=== PATIENT | female | born 1935 | race Caucasian/White ===

== ENCOUNTER → 2018-06-06 07:50 | Outpatient (CLI) | payer MEDICARE, OTHER, SELFPAY | PROVIDERS: Family Provider Podiatrist; PCP Internal Medicine; Visit Provider Internal Medicine | DX: M81.0 Age-related osteoporosis without current pathological fracture (principal); I10 Essential (primary) hypertension; Z53.9 Procedure and treatment not carried out, unspecified reason ==

== ENCOUNTER → 2018-06-12 13:18 | Oncology outpatient (ONC) | payer MEDICARE, OTHER, SELFPAY ==
[2018-06-12 14:22] LABS: BUN Creatinine Ratio 28.3 (6-22); Blood Urea Nitrogen 17 mg/dL (7-17); Calcium 9.4 mg/dL (8.4-10.2); Carbon Dioxide 27 mmol/L (22-32); Chloride 106 mmol/L (98-107); Estimated Glomerular Filt Rate > 60.0 mL/min (>60); Glucose 89 mg/dL (80-110); HEMOLYSIS < 15 (0-50); Potassium 3.9 mmol/L (3.4-5.1); Sodium 140 mmol/L (137-145)
[2018-06-12 14:47] VITALS: BP 140/56; PULSE 66; RESP 18; TEMP 36.9; O2SAT 96
[2018-06-12] MEDS: ZOLEDRONIC ACID 5 MG in SODIUM CHLORIDE 0.9% 100 ML 318.75 ML IV (14:49)
--- NOTE | 2018-06-12 15:36 | PC.NURSE ---
Pt seen in clinic for reclast. Denies chest pain and SOB. No nausea or vomiting reported. Gait steady. Speech clear. Answers questions appropriately. No s/s of distress noted, states I'm doing good.
== END ==
LOC: ONC 13:21
PROVIDERS: Family Provider Podiatrist; PCP Internal Medicine; Visit Provider Internal Medicine
DX: M81.0 Age-related osteoporosis without current pathological fracture (principal); I10 Essential (primary) hypertension
CPT/HCPCS: 80048; 96374; J3489

== ENCOUNTER → 2018-09-10 14:00 | Outpatient (REF) | payer MEDICARE, OTHER, SELFPAY | LOC: LAB 14:00 | PROVIDERS: Family Provider Podiatrist; PCP Internal Medicine; Visit Provider Dermatology MOHS-Micrographic Surgery | DX: Z48.817 Encounter for surgical aftercare following surgery on the skin and subcutaneous tissue (principal) | CPT/HCPCS: 87070; 87075; 87077; 87147; 87186; 87205 ==

== ENCOUNTER → 2019-06-17 14:00 | Oncology outpatient (ONC) | payer MEDICARE, OTHER, SELFPAY ==
[2019-06-17] MEDS: ZOLEDRONIC ACID 5 MG in SODIUM CHLORIDE 0.9% 100 ML 318.75 ML IV (14:13)
[2019-06-17 14:16] VITALS: BP 114/62; PULSE 69; RESP 16; TEMP 36.8; O2SAT 95
== END ==
PROVIDERS: Family Provider Podiatrist; PCP Internal Medicine; Visit Provider Internal Medicine
DX: M81.0 Age-related osteoporosis without current pathological fracture (principal)
CPT/HCPCS: 96365; J3489

== ENCOUNTER 2019-09-24 13:49 | Observation (INO) | payer MEDICARE, OTHER, SELFPAY ==
[2019-09-20 12:20] VITALS: BMI 24.8
[2019-09-23] VITALS (16 sets, daily range): BP systolic 99–150; BP diastolic 59–79; PULSE 58–73; RESP 9–18; TEMP 36.3–37.3; O2SAT 95–100; BMI 24.3
--- NOTE | 2019-09-23 | PATH_ITS ---
[facility] Accession Number: [id number] . 01 Material submitted: . PART A: gallbladder - GALLBLADDER PART B: uterus - UTERUS, BILATERAL OVARIES AND FALLOPIAN TUBES, CERVIX . 02 Diagnosis: A. Gallbladder, Cholecystectomy: Gallbladder with cholelithiasis and cholesterolosis. Benign lymphoid tissue present at the cystic duct remnant. Attached sub-capsular hepatic parenchyma with no significant histomorphologic abnormality. . B. Uterus, Bilateral Ovaries and Fallopian Tubes, Cervix, Hysterectomy and Bilateral Salpingo-oophorectomy (Weight 43 grams): Cervix with focal reactive changes and parakeratosis, consistent with clinical impression of prolapse. Endocervix with prominent Nabothian gland cysts; negative for glandular dysplasia or malignancy. Endometrium with cystic atrophy; negative for glandular hyperplasia, cytologic atypia or malignancy. 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 Uterine serosa with no significant histomorphologic abnormality. Right and left ovaries with no significant histomorphologic abnormality. Right fallopian tube with benign paratubal cysts and otherwise no significant histomorphologic abnormality. Left fallopian tube with no significant histomorphologic abnormality. MRV 09/25/2019 1651 Local . 02 Electronically signed: . Myra Alas MD, Pathologist NPI- [id number] . 01 Gross description: . (A) Received in formalin, labeled gallbladder, is an intact gallbladder (length-11.5 cm, diameter-4.3 cm) with green smooth shiny serosa and a patent cystic duct. A piece of hepatic tissue (2.3 x 1.7 x 0.5 cm) with an unremarkable cut surface is attached to the fundus. A possible lymph node (0.3 x 0.2 by less than 0.1 cm) is identified. The lumen contains dark green viscous bile and one brown hard calculus (1.3 x 0.7 x 0.6 cm). The mucosa is green, smooth and flat. The wall is up to 0.1 cm thick. No nodules, masses or lesions are identified. Section code: (A1) cystic duct resection margin and two serial sections from the body; (A2) two longitudinal sections from the fundus; (A3) hepatic tissue, serially sectioned, entirely submitted; (A4) one intact possible lymph node. (B) Received in formalin, labeled uterus, ovaries and fallopian tube bilateral, cervix, is a uterus (43 grams, 2.4 cm AP, 7.2 cm SI, 3.7 cm ML) with attached ovaries (right-2.5 x 0.8 x 0.6 cm; left-1.7 x 1.0 x 0.5 cm) and fimbriated fallopian tubes (right: length-5.1 cm, diameter-0.2 cm; left: length-5.2 cm, diameter-0.2 cm). The cervix (1.5 cm AP, 2.7 cm ML) has a transverse os and patent endocervical canal lined with multiple cystic cavities (0.1 cm-0.5 cm) containing clear colorless fluid and turbid gelatinous material. The endometrium (average thickness -0.1 cm) is umaña-pink smooth and flat. The myometrium (thickness-1.2 cm) is umaña and unremarkable. The ovaries have umaña-yellow shiny bosselated serosa and umaña-white parenchyma with corpus albicans identified. The fallopian tubes have umaña-smooth shiny serosa and umaña unremarkable lumens. Section code: (B1) anterior cervix; (B2) posterior cervix; (B3, B4) anterior endomyometrium; (B5, B6) posterior endomyometrium; (B7) right ovary, sales representative [employer] serial sections; (B8) left ovary, sales representative [employer] serial sections; (B9) right fallopian tube, sales representative [employer] serial sections; (B10) right fimbria, bivalved, entirely submitted; (B11) left fallopian tube, sales representative [employer] serial sections; (B12) left fimbria, bivalved, entirely submitted. ([id number]) /MRV 09/25/2019 0506 Local . 02 Pathologist provided ICD-10: K80.70, N81.4 . 02 CPT . 592023, 702525 Performed at: 01 [facility] [address] [id number] MD Eren Frost MD Phone: [phone] Performed at: 02 [facility] [id number] [place], [place] [id number] MD Marjan Winn MD Phone: [phone]
--- NOTE | 2019-09-23 07:34 | PM.PREOP ---
Pre-operative Note Interval Note History & Physical reviewed/Exam performed by Physician: Yes Changes to H&P: No
--- NOTE | 2019-09-23 07:36 | PM.PREOP ---
Pre-operative Note Interval Note History & Physical reviewed/Exam performed by Physician: Yes Changes to H&P: No
[2019-09-23 07:46] LABS: Add Manual Diff / Slide Review NO; Basophils Absolute Auto 0 /uL (0-100); Basophils Percent Auto 1.1 % (0-2); Eosinophils Absolute Auto 100 /uL (0-450); Hematocrit 39.4 % (36-46); Hemoglobin 13.5 g/dL (12.0-16.0); Lymphocytes Absolute Auto 1700 /uL (1100-4500); Lymphocytes Percent Auto 41.4 % (25-40); Mean Corpuscular HGB Conc 34.1 % (30-36); Mean Corpuscular Hemoglobin 31.1 PG (26-34); Mean Corpuscular Volume 91.3 fL (80-100); Monocytes Absolute Auto 300 /uL (0-900); Monocytes Percent Auto 7.3 % (3-14); Neutrophils Absolute Auto 1900 /uL (1500-7000); Neutrophils Percent Auto 47.2 % (50-75); Platelet Count 236 X10^3/uL (150-400); Red Blood Cell Count 4.32 X10^6/uL (4.0-5.2); Red Cell Distribution Width 13.2 % (11.6-14.8)
[2019-09-23] MEDS: LACTATED RINGERS 1,000 ML 42 ML IV ×2 (07:48→08:35)
[2019-09-23 07:55] LABS: Blood Urea Nitrogen 15 mg/dL (7-17); Calcium 9.7 mg/dL (8.4-10.2); Carbon Dioxide 27 mmol/L (22-32); Chloride 106 mmol/L (98-107); Estimated Glomerular Filt Rate > 60.0 mL/min (>60); Glucose 97 mg/dL (80-110); Sodium 139 mmol/L (137-145)
[2019-09-23 07:57] LABS: HEMOLYSIS 64 (0-50); Potassium 4.1 mmol/L (3.4-5.1)
[2019-09-23] MEDS: BUPIVACAINE 0.5% W/ EPI (PF) VIAL 30 ML INJ (08:37)
--- NOTE | 2019-09-23 08:39 | SUR.OPER ---
Lithotomy on padded OR bed. [place] Pad Positioner under torso. Head on pillow, arms padded and tucked at sides. Legs secured in padded yellow fins stirrups.
--- NOTE | 2019-09-23 09:05 | P.OP_ITS ---
Operative Date/Time/Diagnoses Date of procedure: 09/23/19 Time of procedure: 09:05 Pre-op diagnosis: BILIARY COLIC Post-op diagnosis: same Procedure & Clinicians Procedure: LAPAROSCOPIC CHOLECYSTECTOMY Same procedure as scheduled: Yes Indications: 84-year-old female with biliary colic presents for elective cholecystectomy to be performed jointly with a laparoscopic hysterectomy. Surgeon: Lang Guzman Chart Computer: Vani Cool Click Yes if Unassisted: No Anesthesia Type: General Operative Notes Findings: Gallstone Specimen(s): other (Gallbladder) Estimated Blood Loss (mL): 10 Procedure in detail: The patient was brought to the operating room placed supine on the table. Bilateral lower extremity compression devices were applied. General anesthesia was induced and they were intubated with an endotracheal tube. They received 2g of ancef prior to skin incision. A time-out was performed to ensure the correct patient procedure necessary equipment within the operating room. They were then prepped and draped in the usual sterile fashion. Infraumbilical incision was made the umbilical stalk was grasped and elevated and the fascia was sharply incised. The abdomen was entered atraumatically. A 10 mm trocar was then placed into the abdomen. Pneumoperitoneum was established. The laparoscopic camera was inserted into the abdomen inspection was made that demonstrated no evidence of injury upon entry. We then placed our working ports the 1st 5 mm port high in the epigastrium and then 2 in the right upper quadrant. The gallbladder was grasped and retracted over the liver and grasped laterally by the fundus. The triangle of Calot was exposed. The tr iangle of calot was then skeletonized using hook electrocautery and demonstrated the cystic duct clearly entering the gallbladder the cystic artery and the liver and in the background. With the critical view of safety established the cystic duct was clipped twice proximally and once distally and then sharply divided and the cystic artery was taken in the same fashion. Next the gallbladder was re moved from the liver bed using electro cautery. The liver bed was then inspected for hemostasis and this was achieved. The abdomen was irrigated with sterile saline and inspection was made that showed the clips in good position. The specimen was removed using Endo-Catch. Please see Dr. Cool's dictation for the details of the remainer of the case Complications: none Post-operative Condition: stable Disposition: Acute Care
[2019-09-23] MEDS: ACETAMINOPHEN IV 1,000 MG/100 ML VIAL 400 MG IV (09:15)
[2019-09-23] MEDS: BUPIVACAINE 0.25% W/ EPI 30 ML VIAL INJ (09:47)
--- NOTE | 2019-09-23 11:47 | SUR.PHASEI ---
Report called to floor, Patient comfortable, Denies pain/nausea, warm blankets given for mild shivers. Transported to floor by Rn and nursing aide. Clothing bag and glasses to room.
[2019-09-23] MEDS: LACTATED RINGERS 1,000 ML 100 ML IV (12:15)
[2019-09-23] MEDS: OXYCODONE/ACETAMINOPHEN 5/325 TABLET 1 TAB PO (14:38)
--- NOTE | 2019-09-23 14:43 | PC.NURSE ---
Postop: Arrived to room 227 approx 1200. Alert and oriented X3. Band-aid dressings on Abd C/D/I. No bleeding on gustavo-pad. Coe to gravity, urine clear yellow. Room air, cont pulse ox in place. Denies N/V, tolerating PO's ok. Just C/O increasing abd discomfort, and was medicated with 1 tab Percocet for the same. SCD's to BLE's. Ice pack to abd. IVF per orders, site in L forearm WNL. Oriented to room and call light and encouraged to make needs known. Light and belongings within reach, bed alarm on. Family at bedside and attentive.
[2019-09-23] MEDS: ACETAMINOPHEN 325 MG TABLET 650 MG PO (19:29)
[2019-09-23] MEDS: OXYCODONE IR 5 MG TABLET PO ×2 (19:29→22:52)
--- NOTE | 2019-09-23 20:56 | P.OP_ITS ---
Operative Date/Time/Diagnoses Date of procedure: 09/23/19 Time of procedure: 11:00 Pre-op diagnosis: Uterine prolapse 3rd degree Cystocele third-degree Rectocele third-degree Post-op diagnosis: same Procedure & Clinicians Procedure: Procedures Operation Date: 09/23/19 07:45 Actual Procedures Side Surgeon p Laparoscopic Assisted Vag Hysterectomy w/ bilateral salpingo-oophorectomy Vani Cool MD s Colporrhaphy Anterior/Posterior Colporrhaphy Vani Cool MD s Laparoscopic Cholecystectomy Lang Guzman MD Indications: Uterine prolapse Symptomatic cystocele and rectocele Incomplete emptying of the bladder Surgeon: Vani Cool Footwear Factory Worker: Cy Killian Anesthesia Type: General Operative Notes Findings: Five week size prolapsed uterus Third-degree cystocele Third-degree rectocele Normal ovaries and tubes Normal appendix, and liver Closure Type: primary Specimen(s): left tube & ovary, right tube & ovary and uterus Applied: catheter Estimated blood loss (mL): 100 Blood products transfused: none Procedure in detail: The patient was taken to the operating room where she was placed in the dorsal supine position. After adequate general endotracheal anesthesia was achieved, she was placed in the dorsal lithotomy position, and prepped and draped in the usual sterile fashion. A bivalve speculum was placed into the vagina, and a single-tooth tenaculum was placed on the anterior lip of the cervix. The cervical os was sequentially dilated until the ZUMI uterine manipulator could pass easily into the endometrial cavity. The single-tooth tenaculum was removed from the anterior lip of the cervix, and the bivalve speculum was removed from the vagina. The laparoscopy was then initiated by Dr. Guzman who was performing the laparoscopic cholecystectomy. This is dictated as a separate note by Dr. Guzman. At the completion of the laparoscopic cholecystectomy, a 5th incision was made after 6 cc of 0.5% Marcaine with epinephrine were injected. This was midway between the pubic symphysis and umbilicus on the left side. A 5 mm incision was made. A 5 mm trocar was placed under direct visualization. Initial inspection of the pelvis revealed the findings noted above. The right tube and ovary were grasped with an atraumatic grasper. The infundibulopelvic ligament on the right side was cauterized and cut with plasma kinetic. The round ligament and broad ligament were cauterized and cut. This was continued to the level of the uterine arteries. This was repeated on the patient's left side. The instruments were removed from the abdomen. Attention was then turned to the vagina where the ZUMI uterine manipulator was removed from the uterus. The cervix was grasped with a 4 tooth tenaculum. 10 mL of quarter percent Marcaine with epinephrine w ere injected circumferentially around the cervix. The cervix was circumscribed. The bladder and rectum were dissected off the lower uterine segment and cervix with an open moistened Ray-Monica. The peritoneum was entered sharply with the Metzenbaum scissors anteriorly and a [place] placed. The peritoneum was entered posteriorly with the Metzenbaum scissors and the long weighted speculum was placed into the posterior cul-de-sac. The uterosacral cardinal ligament complexes were clamped, transected, and suture ligated with 0 Vicryl. These were attached to hemostat. The uterine arteries were clamped, transected, and suture ligated with 0 Vicryl. The uterus was handed off for specimen with the tubes and ovaries. The peritoneum was closed with a pursestring suture with 2-0 Vicryl. The vaginal cuff was closed with 0 Vicryl with a series of simple interrupted sutures. The tagged sutures were cut. 2 Allis clamps were placed at the apex of the cystocele. 6 mL of half percent Marcaine with epinephrine were injected and an incision was made with a #10 blade between the 2 Allis clamps. Wide Allis clamps were placed on the midline of the cystocele approximately 6. The mucosa was undermined using the Metzenbaum scissors and the mucosa incised in the midline moving the wide Allis clamps to the edges of the mucosa. The mucosa was dissected off the underlying fascia using an open moistened Ray-Monica and a #10 blade. The fascia was reapproximated with 0 Vicryl with a series of horizontal mattress sutures. The excess vaginal mucosa was excised. The mucosa was closed using simple interrupted sutures with 2-0 Vicryl including the underlying fascia to close the space. The weighted speculum was removed from the vagina. Allis clamps were placed at the mucocutaneous junction at the introitus. 6 mL of half percent Marcaine with epinephrine were injected. An incision was made with a #10 blade between the 2 Allis clamps, and a triangular piece of skin and underlying subcutaneous tissue was removed. Allis clamps were placed in the midline of the rectocele. 10 mL of half percent Marcaine with epinephrine were injected submucosally. The mucosa was undermined using the Metzenbaum scissors and the mucosa incised in the midline, moving the wide Allis clamps to the mucosal edges. The underlying fascia was dissected off of th mucosa using an open moistened Ray-Monica and a #10 blade. The fascia was reapproximated using 0 Vicryl with a series of horizontal mattress sutures. The excess vaginal mucosa was excised. The mucosa was closed using a series of simple interrupted sutures with 2-0 Vicryl including the underlying fascia to close the space. On the perineum 0 Vicryl was used to reapproximate the levator muscle. The subcutaneous layer was closed with 2-0 Vicryl. The skin was closed with 3-0 chromic in a subcuticular fashion. Hemostasis was achieved. Attention was then turned back to the abdomen where the pelvis was inspected. There was no bleeding noted. The pelvis was copiously irrigated with warm normal saline. The instruments were removed from the abdomen. The CO2 was allowed to escape. The trocars were removed. The umbilical incision was closed on the fascia with 0 Vicryl. The subcutaneous layer was closed with 2 simple interrupted sutures with 3 0 Vicryl. all of the incisions were closed with 4-0 Biosyn in a subcuticular fashion. Steri-Strips, 2 x 2, and op sites were placed. A Betadine moistened vaginal pack was placed into the vagina. A rectal exam was done and there were no sutures palpable in the rectum. The urine was clear. Sponge, lap, and instrument counts were correct x-2. The patient tolerated the procedure well, was taken to PACU in stable condition. Complications: none Post-operative Condition: stable Disposition: PACU Plan for aftercare: To Acute Care after recovery
[2019-09-23] MEDS: DOCUSATE 250 MG CAPSULE PO (21:45)
[2019-09-24] MEDS: OXYCODONE IR 5 MG TABLET PO ×3 (02:02→10:47)
--- NOTE | 2019-09-24 02:40 | PC.NURSE ---
Addendum entered by Toña Wallace R.N. 09/24/19 06:23: Vaginal packing removed and then catheter d'cd. Instructed in sx/prevention of UTI. Periarea cleansed and peripad changed; small amount blood on pad. Addendum entered by Toña Wallace R.N. 09/24/19 05:48: Order to DC catheter at 0600, but patient has vaginal packing in. Dr Cool called and order received to remove packing prior to discontinuing catheter. Patient states she slept well with being able to lie on side. Declines offer of pain medication at this time. Original Note: Patient is alert and oriented. Breath sounds CTA with RA sat of 98%. HRR but bradycardic at 58 bpm. Denies nausea. BT present and states she has passed some flatus. Does have some abdominal cramping and feeling of need to defecate. Moderate amount old blood on chux pad; placed peripad. Indwelling catheter is patent; urine clear, light joselin. Able to move self in bed, but hesitant about turning so assisted to lie on right side with supportive pillows as complains of 3/10 back pain. Medicated with Oxycodone for abdominal cramping and back pain. Lap site dressings x 5 are all CDI; bruising noted below umbilical dressing. Abdomen is tender/soft. Wearing bilateral SCD's. Reports recent fall so fall risk score is high and bed alarm is activated. Assisted to bathroom with walker and 1 assist then back to bed. Chronic tingling present in left foot.
[2019-09-24 05:24] LABS: Add Manual Diff / Slide Review NO; Basophils Absolute Auto 0 /uL (0-100); Basophils Percent Auto 0.2 % (0-2); Eosinophils Absolute Auto 0 /uL (0-450); Eosinophils Percent Auto 0.1 % (2-4); Hematocrit 30.9 % (36-46); Hemoglobin 10.7 g/dL (12.0-16.0); Lymphocytes Absolute Auto 1600 /uL (1100-4500); Lymphocytes Percent Auto 17.1 % (25-40); Mean Corpuscular HGB Conc 34.5 % (30-36); Mean Corpuscular Hemoglobin 31.3 PG (26-34); Mean Corpuscular Volume 90.9 fL (80-100); Monocytes Absolute Auto 800 /uL (0-900); Monocytes Percent Auto 9.2 % (3-14); Neutrophils Absolute Auto 6800 /uL (1500-7000); Neutrophils Percent Auto 73.4 % (50-75); Platelet Count 199 X10^3/uL (150-400); White Blood Cell Count 9.2 X10^3/uL (4.5-11.0)
[2019-09-24 06:08] VITALS: BP 107/45; PULSE 69; RESP 16; TEMP 36.6; O2SAT 97
[2019-09-24 07:55] VITALS: BP 113/55; PULSE 63; RESP 18; TEMP 36.6; O2SAT 98
[2019-09-24] MEDS: ROSUVASTATIN 10 MG TABLET PO (08:12)
[2019-09-24] MEDS: POLYETHYLENE GLYCOL 3350 17 GM POWD.PACK PO (08:12)
[2019-09-24] MEDS: DOCUSATE 250 MG CAPSULE PO ×2 (08:12→21:03)
[2019-09-24] MEDS: MULTIVITAMIN 1 TABLET 1 TAB PO (08:12)
[2019-09-24] MEDS: CALCIUM CARBONATE 600 MG TABLET 1200 MG PO (08:19)
[2019-09-24] MEDS: FISH OIL 1,000 MG CAPSULE 1000 MG PO (08:19)
[2019-09-24] MEDS: VALSARTAN 80 MG TABLET 40 MG PO (08:19)
[2019-09-24 08:32] VITALS: BP 130/63; PULSE 70
--- NOTE | 2019-09-24 09:35 | P.PN_ITS ---
Subjective Subjective Date Patient Seen: 09/24/19 Time Patient Seen: 09:35 Interval history: No acute overnight events. Tolerating diet without nausea vomiting. Exam Vital Signs (past 8 hours): - 09/24/19 06:08 09/24/19 07:55 09/24/19 08:32 Temperature 97.9 F 98 F Pulse Rate 69 63 70 Respiratory Rate 16 18 Blood Pressure 107/45 L 113/55 L 130/63 Pulse Oximetry 97 98 Oxygen Delivery Method Room Air Oxygen Flow Rate 0 Narrative Exam Narrative: General adult female alert oriented no acute distress Abdomen soft appropriately tender to palpation incisions clean dry intact Objective Labs Result Diagrams: 09/24/19 04:45 09/23/19 07:30 Labs: Laboratory Results - last 24 hr 09/24/19 04:45 WBC 9.2 D RBC 3.40 L Hgb 10.7 L Hct 30.9 L MCV 90.9 MCH 31.3 MCHC 34.5 RDW 13.0 Plt Count 199 Neut % (Auto) 73.4 D Lymph % (Auto) 17.1 L D [place] % (Auto) 9.2 Eos % (Auto) 0.1 L Baso % (Auto) 0.2 Neut # (Auto) 6800 Lymph # (Auto) 1600 [place] # (Auto) 800 Eos # (Auto) 0 Baso # (Auto) 0 Assessment & Plan Post-op Postoperative Procedures: Procedures Operation Date: 09/23/19 07:45 Actual Procedures Side Surgeon p Laparoscopic Assisted Vag Hysterectomy w/ bilateral salpingo-oophorectomy Vani Cool MD s Colporrhaphy Anterior/Posterior Colporrhaphy Vani Cool MD s Laparoscopic Cholecystectomy Lang Guzman MD Postoperative status narrative: 84-year-old female postoperative day 1 status post laparoscopic cholecystectomy and hysterectomy doing well. No acute issues related to the cholecystectomy progressing appropriately. -no lifting greater than 20 lb for the next 4 weeks -follow-up with General surgery in 2 weeks time. Quality VTE Deep Vein Thrombosis/Pulmonary Embolism Present on Admission: No
--- NOTE | 2019-09-24 10:48 | PC.NURSE ---
Addendum entered by Shi Dumont R.N. 09/24/19 14:30: Cabrera placed and pt immediately had 1000cc of yellow urine out. Called Dr. Cool and she wants us to keep cabrera catheter in over to night to rest bladder and then in the am we will remove it and see if she can void. Addendum entered by Shi Dumont R.N. 09/24/19 13:34: Pt has voided 2 more times at 1125 she had voided 150cc and pvr was 217. She also voided 275cc and pt had pvr of 324 for first scan and then 127cc for second scan. into see patient for a second time and she would like a cabrera to be inserted for accurate pvr and if she has a lot of urine in bag we will keep it in. Original Note: Pt is A&Ox3. Given percolone x2 this shift. She is moving with a one person assist and using walker. Pt has 5 lap sites to her abdomen that are all dressed and cdi. She does have some bruising to her mid abdomen from surgery. Family is in room. Cabrera catheter taken out at 0600 and pt voided 100cc at 1000am, her post void residual was 134cc. Dr. Cool's Nurse notified. Pt will most likely be disharged to home today.
[2019-09-24 12:00] VITALS: BP 102/51; PULSE 63; RESP 18; TEMP 36.3; O2SAT 96
--- NOTE | 2019-09-24 12:09 | CM.DANOTE ---
DCP/Assessment: Reviewed chart. Patient is a 84yr old female admitted to [facility] for elective 1)Hysterectomy and 2)Laparoscopic Cholecystectomy. PCP is Dr. German. Primary payor is 1)Medicare 2)[facility]. Met with patient explained CM/SW role. Patient resting comfortably in bed at time of assessment. Patient reports that she hopes to d/c home today. Patient resides with her spouse/Sebastian in [facility]. Patient uses walker at baseline and both herself and spouse drive. Patient denies any d/c planning needs. Patient and spouse report that they have very supportive family nearby that can assist as needed. P: Home when medically stable. DEYANIRA Santos Discharge Planning/Care Management Advanced directive, confirm from FAMILY Start: 09/23/19 12:49 Freq: Q24H Status: Active Protocol: Document 09/23/19 12:49 KTE (Rec: 09/23/19 12:50 KTE [id number]) Advance Directive, confirm on record Time 12:50 Person contacted family Copy received No CM Discharge Assessment Start: 09/24/19 12:07 Freq: Status: Active Protocol: Document 09/24/19 12:07 KJS (Rec: 09/24/19 12:09 KJS [id number]) Discharge Planning Assessment Assigned Prototype Engineer Manager DEYANIRA Santos Contact Information Sebastian Clark (spouse) [phone] Advance Directives? Yes Advance Directives on File No History Provided By Patient,Significant Other, Medical Record Prior Living Arrangements House Household Members spouse Type of transporation used prior to Drives own vehicle admit Independent with ADL's Yes: Uses walker at baseline Is patient alert and oriented? Yes Caregiver for Another Yes: elderly spouse DME Already Rented / Owned FWW / Walker Barriers to Discharge No Discharge Plan Home Transportation Arrangement Family to provide transport Whiteboard Updated in Patient Room with Yes name and ext. # of Prototype Engineer Manager Review Status In Process Next Review Type Continued Stay Review Pre-Anesthesia Assessment Start: 09/20/19 12:20 Freq: Status: Complete Protocol: Document 09/20/19 12:20 CAB (Rec: 09/20/19 12:33 CAB [id number]) Pre-Anesthesia Assessment Patient Information Reviewed Via Chart Review Primary Care Provider Nik German Seen Specialist in Last 12 Months Yes Specialist Seen General surgeon,Deep Fryer Assembler Primary Language Albanian Insurance Verification Representative Required No Height 167.64 cm Weight 69.853 kg Body Mass Index (BMI) 24.8 Anesthesia Review Requested No Pantry Steward/Stewardess No Smoking Status Former smoker how long ago did patient quit smoking ~1977 Pain Present Pain Reported Comment RUQ Patient is completely paralyzed or No completely immobile Mental Status Oriented to own ability Currently Taking a Beta [place] No Anti-Coagulant Therapy No Urinary Catheter Present No Hx Urinary Self Catheterization No Diabetes No Patient No Lactating No Presence of External or Internal Medical Yes: Knee prosthesis Devices Advance Directives? Yes
[2019-09-24 15:37] VITALS: BP 109/53; PULSE 68; RESP 18; TEMP 36.7; O2SAT 96
[2019-09-24] MEDS: OXYCODONE IR 10 MG TABLET PO ×2 (17:14→21:02)
[2019-09-24 21:08] VITALS: BP 131/72; PULSE 72; RESP 18; TEMP 36.8; O2SAT 96
--- NOTE | 2019-09-24 21:14 | P.PN_ITS ---
Subjective Subjective Date Patient Seen: 09/24/19 Time Patient Seen: 17:15 Interval history: Patient is an 84-year-old postop day # 1 status post laparoscopic cholecystectomy, LAVH/BSO/anterior and posterior repair She is tolerating a diet. No nausea or vomiting. Pain is well controlled. Her catheter and packing were removed at 6:00 a.m. this morning. She has been able to void but has had increasing postvoid residuals. Exam Vital Signs (past 8 hours): - 09/24/19 15:37 09/24/19 21:08 Temperature 98.1 F 98.2 F Pulse Rate 68 72 Respiratory Rate 18 18 Blood Pressure 109/53 L 131/72 Pulse Oximetry 96 96 Oxygen Delivery Method Room Air Oxygen Flow Rate 0 Narrative Exam Narrative: Generally: Patient is sitting up in bed, eating dinner, no acute distress Lungs: Clear to auscultation bilaterally Cardiovascular: Regular rate and rhythm Abdomen: Distended especially below the umbilicus. Good bowel sounds. Extremities: Negative Homans, no edema Objective Labs Result Diagrams: 09/24/19 04:45 09/23/19 07:30 Labs: Laboratory Results - last 24 hr 09/24/19 04:45 WBC 9.2 D RBC 3.40 L Hgb 10.7 L Hct 30.9 L MCV 90.9 MCH 31.3 MCHC 34.5 RDW 13.0 Plt Count 199 Neut % (Auto) 73.4 D Lymph % (Auto) 17.1 L D [place] % (Auto) 9.2 Eos % (Auto) 0.1 L Baso % (Auto) 0.2 Neut # (Auto) 6800 Lymph # (Auto) 1600 [place] # (Auto) 800 Eos # (Auto) 0 Baso # (Auto) 0 Assessment & Plan Post-op Postoperative Procedures: Procedures Operation Date: 09/23/19 07:45 Actual Procedures Side Surgeon p Laparoscopic Assisted Vag Hysterectomy w/ bilateral salpingo-oophorectomy Uma Cool MD s Colporrhaphy Anterior/Posterior Colporrhaphy Vani Cool MD s Laparoscopic Cholecystectomy Lang Guzman MD Postoperative day: 1 Postoperative status: urinary retention Postoperative status narrative: Postop day # 1 with acute urinary retention Postoperative plan: voiding trials Postoperative plan narrative: In and out catheterization with Coe, if greater than 400 cc will leave the catheter in place overnight Removed catheter in the morning and begin voiding trials Anticipate discharge September 25, 2019 Time Spent With Patient Time with patient: 15-24 minutes Quality VTE Deep Vein Thrombosis/Pulmonary Embolism Present on Admission: No
[2019-09-25 00:03] VITALS: BP 128/66; PULSE 74; RESP 20; TEMP 36.7; O2SAT 97
[2019-09-25] MEDS: OXYCODONE IR 5 MG TABLET PO ×2 (04:27→09:56)
[2019-09-25 04:35] VITALS: BP 114/69; PULSE 76; RESP 16; TEMP 36.9; O2SAT 96
--- NOTE | 2019-09-25 06:32 | PC.NURSE ---
0600 Coe discontinued tolerated procedure well. Noted scant amount of vaginal bleeding, good gustavo & skin care done. Wearing her own underwear & gustavo-pad applied. Denies any pain @ this time & reported slept a little better last night. Will cont. POc & monitor.
--- NOTE | 2019-09-25 08:33 | PC.NURSE ---
Pt voided 225 in the bathroom and bladder scanned (PVR) of 120cc. has discharged pt and she will be going home around 11am.
[2019-09-25 08:55] VITALS: BP 126/68; PULSE 66; RESP 14; TEMP 36.8; O2SAT 97
[2019-09-25] MEDS: MULTIVITAMIN 1 TABLET 1 TAB PO (08:56)
[2019-09-25] MEDS: DOCUSATE 250 MG CAPSULE PO (08:56)
[2019-09-25] MEDS: FISH OIL 1,000 MG CAPSULE 1000 MG PO (08:56)
[2019-09-25] MEDS: CALCIUM CARBONATE 600 MG TABLET 1200 MG PO (08:56)
[2019-09-25] MEDS: VALSARTAN 80 MG TABLET 40 MG PO (08:57)
[2019-09-25] MEDS: ENOXAPARIN 40 MG/0.4 ML SYRINGE SUBCUT (08:57)
[2019-09-25] MEDS: ROSUVASTATIN 10 MG TABLET PO (08:57)
[2019-09-25] MEDS: POLYETHYLENE GLYCOL 3350 17 GM POWD.PACK PO (08:57)
[2019-09-25] MEDS: ACETAMINOPHEN 325 MG TABLET 650 MG PO (08:57)
--- NOTE | 2019-09-25 23:45 | PM.DS.1 ---
History of Present Illness History of Present Illness Date Patient Seen: 09/25/19 Chief complaint: [id number] (FLY) & [id number] (LOBO) OPB Narrative: Patient is an 84-year-old postop day # 2 status post LAVH/BSO/anterior and posterior repair She also underwent a laparoscopic cholecystectomy. She stayed in the hospital overnight due to acute urinary retention. This morning her catheter was removed at 6:00 a.m.. She voided 250 cc with a less than 100 cc postvoid residual by scan. She is tolerating a diet. Pain is well controlled. She is ambulating without assistance. Discharge Providers Provider Date of admission: 09/24/19 13:49 Discharge Date: 09/25/19 Primary care physician: Nik German MD Consults: 09/23/19 12:48 Consult to Dietitian, Adult Routine Comment: Reason For Exam: indicated from admit nutritional assessment Discharge provider: Vani Cool MD Summary Hospital Course Discharge Diagnosis: Status post LAVH/BSO/anterior and posterior repair Status post laparoscopic cholecystectomy Acute urinary retention postoperatively Hospital Course: Patient underwent a laparoscopic cholecystectomy, LAVH/BSO/anterior and posterior repair on September 23, 2019 without complication. On postop day # 1 her catheter was removed and vaginal packing was removed. She was able to void small amounts but had increasing postvoid residuals. A Coe catheter was placed in the afternoon and left in overnight. On postop day # 2 the catheter was removed and she was able to void with low postvoid residuals. She was tolerating a diet, no nausea and vomiting, pain well controlled, and she was ambulating independently. Status at Discharge Cognitive/behavioral status at discharge: oriented Functional status at discharge: independent ambulation Overall status at discharge: patient is progressing back to baseline Time Spent with Patient Time spent: Less than 30 minutes Exam Vital Signs (past 8 hours): Oxygen Delivery Method Room Air Oxygen Flow Rate 0 Narrative Exam Narrative: Generally: Patient is sitting up in bed, eating breakfast, no acute distress Lungs: Clear to auscultation bilaterally Cardiovascular: Regular rate and rhythm Abdomen: Soft, good bowel sounds. Incisions: Clean dry and intact with op sites Extremities: Negative Homans, no edema Objective Labs Result Diagrams: 09/24/19 04:45 09/23/19 07:30 Discharge Plan Discharge Plan Patient Disposition: Home Discharge comment: Call with fever, chills, redness or drainage around incisions or bleeding vaginally more than spotting to light Alternate Ibuprofen and Tylenol Empty bladder every 2 1/2-3 hours Wake at least once through the night to empty bladder Discharge Med Rec/Prescriptions Prescriptions: New enoxaparin [Lovenox] 40 mg/0.4 mL syringe 40 mg SUBCUT DAILY 7 Days Qty: 4 RF: 0 Continued omega 6-vsj-hhu-fish oil [Fish Oil] 1,000 MG capsule 1,000 mg PO DAILY Qty: 0 RF: 0 valsartan 40 mg tablet 40 mg PO DAILY RF: 0 zoledronic ixfp-vbzgcbli-rjfbr [Reclast] 5 mg/100 mL piggyback 5 mg IV ONCE RF: 0 rosuvastatin 10 mg tablet 10 mg PO DAILY RF: 0 One-A-Day Womens Formula 18 mg iron-400 mcg-500 mg tablet 1 tab PO DAILY RF: 0 calcium carbonate [Calcium 600] 600 mg calcium (1,500 mg) Tablet 1,200 mg PO DAILY RF: 0 Discontinued estradiol [Vagifem] 10 mcg tablet 10 mcg VAG .COMPLEX RF: 0 No Action oxycodone 5 mg tablet See Rx Instructions PO Q4H PRN (Reason: pain) Qty: 30 RF: 0 Follow up/Referrals: Vani Cool MD [Physician] - 2 Weeks (Dr. Cool's nurse will call you on your home phone with a follow up appt date and time.) Provider Discharge Instructions Diet: Regular Activity: No heavy lifting Skin/Wound/Dressing Care Report to your healthcare provider any signs of infection, such as:: chills, fever, increased pain, unusual drainage and unusual redness Dressing: Remove outer plastic dressings and guaze after first shower Visit Report/Discharge Packet Instructions: DI for Laparoscopy, Cholecystectomy -- Laparoscopic Surgery, DI for Vaginal Hysterectomy, [facility]: Wound Care Stand Alone Forms: Surgery Discharge Discharge Data Primary Care Provider: Nik German V Attending Provider: Vani Cool Admit Date/Time: 09/24/19 13:49 Discharges patient from system. Discharge Date/Time: 09/25/19 10:19 Quality VTE Deep Vein Thrombosis/Pulmonary Embolism Present on Admission: No
== END 2019-09-25 10:19 | disposition home or self-care (01) ==
LOC: OR 14:35
PROVIDERS: Surgery; Admitting Provider Obstetrics & Gynecology; Family Provider Podiatrist; PCP Internal Medicine; Visit Provider Obstetrics & Gynecology
PROC: 0UT9FZZ Resection of Uterus, Via Natural or Artificial Opening With Percutaneous Endoscopic Assistance (ICD-10-PCS; CPT 58552; principal; 2019-09-23 07:45)
PROC: (CPT 58552; 2019-09-23 07:45)
PROC: 0FT44ZZ Resection of Gallbladder, Percutaneous Endoscopic Approach (ICD-10-PCS; CPT 47562; 2019-09-23 07:45)
DX: N81.3 Complete uterovaginal prolapse (principal); N81.6 Rectocele; K80.20 Calculus of gallbladder without cholecystitis without obstruction; I10 Essential (primary) hypertension; E78.5 Hyperlipidemia, unspecified; Z86.711 Personal history of pulmonary embolism
CPT/HCPCS: 58552; 57260; 47562; 36415; 80048; 85025; 94762; G0378; A9270; J0131; J0330; J1100; J1170; J1650; J2250; J2405; J2704; J3010

== ENCOUNTER → 2020-06-12 15:09 | Outpatient (CLI) | payer MEDICARE, OTHER, SELFPAY ==
[2019-09-23 12:34] VITALS: BMI 24.3
--- NOTE | 2020-06-12 | DI.RAD.S_ITS ---
This blank DEXA report has been sent in error by the PACS system. The correct and complete report will be forthcoming in 1-2 days. Thank you for your patience and understanding. COMPARISON: None. Dictated by: Dave Hendricks M.D. on 06/12/2020 at 16:32 Approved by: Dave Hendricks M.D. on 06/12/2020 at 16:32
== END ==
PROVIDERS: Family Provider Podiatrist; PCP Internal Medicine; Referring Provider Internal Medicine; Visit Provider Internal Medicine
DX: M81.0 Age-related osteoporosis without current pathological fracture (principal); Z78.0 Asymptomatic menopausal state; Z87.891 Personal history of nicotine dependence
CPT/HCPCS: 77080

== ENCOUNTER → 2020-08-10 19:21 | Outpatient (ROUT) | payer MEDICARE, OTHER, SELFPAY ==
[2019-09-23 12:34] VITALS: BMI 24.3
[2020-08-10 19:49] LABS: BUN Creatinine Ratio 35.9 (6-22); Blood Urea Nitrogen 23 mg/dL (7-17); Calcium 9.4 mg/dL (8.4-10.2); Carbon Dioxide 31 mmol/L (22-32); Chloride 104 mmol/L (98-107); Estimated Glomerular Filt Rate > 60.0 mL/min (>60); Glucose 88 mg/dL (80-110); HEMOLYSIS < 15 (0-50); Potassium 4.2 mmol/L (3.4-5.1); Sodium 139 mmol/L (137-145)
== END ==
PROVIDERS: Family Provider Podiatrist; PCP Internal Medicine; Visit Provider Internal Medicine
DX: M81.0 Age-related osteoporosis without current pathological fracture (principal)
CPT/HCPCS: 80048

== ENCOUNTER → 2022-10-17 16:20 | Outpatient (CLI) | payer MEDICARE, SELFPAY ==
[2019-09-23 12:34] VITALS: BMI 24.3
[2022-10-17 17:10] LABS: Hematocrit 38.8 % (36-46); Mean Corpuscular HGB Conc 33.6 % (30-36); Mean Corpuscular Hemoglobin 30.8 PG (26-34); Mean Corpuscular Volume 91.6 fL (80-100); Platelet Count 237 X10^3/uL (150-400); Red Blood Cell Count 4.24 X10^6/uL (4.0-5.2); Red Cell Distribution Width 13.5 % (11.6-14.8); White Blood Cell Count 5.1 X10^3/uL (4.5-11.0)
[2022-10-17 17:19] LABS: Alanine Aminotransferase 31 IU/L (<35); Albumin 4.4 g/dL (3.5-5.0); Albumin Globulin Ratio 1.4 (1.0-2.8); Alkaline Phosphatase 65 U/L (38-126); Aspartate Aminotransferase 40 IU/L (14-36); BUN Creatinine Ratio 36.2 (6-22); Bilirubin Total 0.7 mg/dL (0.2-1.3); Blood Urea Nitrogen 25 mg/dL (7-17); Calcium 9.8 mg/dL (8.4-10.2); Carbon Dioxide 31 mmol/L (22-32); Chloride 103 mmol/L (98-107); Cholesterol 150 mg/dL (140-199); Estimated Glomerular Filt Rate > 60 mL/min (>60); Globulin 3.2 g/dL (1.7-4.1); Glucose 94 mg/dL (80-110); HDL Cholesterol 71 mg/dL (40-60); HEMOLYSIS < 15 (0-50); LDL Cholesterol Calculated 69 mg/dL (<100); Potassium 3.9 mmol/L (3.4-5.1); Sodium 141 mmol/L (137-145); Total Protein 7.6 g/dL (6.3-8.2); Triglycerides 52 mg/dL (35-150)
[2022-10-17 17:37] LABS: Vitamin D 25 Hydroxy (D3) 33.4 ng/mL (30.0-100.0)
[2022-10-17 17:50] LABS: TSH w/ Reflex to FT4 2.21 uIU/mL (0.47-4.68)
== END ==
PROVIDERS: Family Provider Podiatrist; PCP Internal Medicine; Referring Provider Internal Medicine; Visit Provider Internal Medicine
DX: E78.2 Mixed hyperlipidemia (principal); E55.9 Vitamin D deficiency, unspecified; I10 Essential (primary) hypertension; I67.9 Cerebrovascular disease, unspecified; M81.0 Age-related osteoporosis without current pathological fracture
CPT/HCPCS: 36415; 80053; 80061; 82306; 84443; 85027

== ENCOUNTER → 2023-02-24 15:55 | Outpatient (CLI) | payer MEDICARE, SELFPAY ==
[2019-09-23 12:34] VITALS: BMI 24.3
--- NOTE | 2023-02-24 15:58 | DI.RAD.S_ITS ---
PROCEDURE: XR HIP W PEL IF DONE RT 2V INDICATIONS: right hip pain TECHNIQUE: AP pelvis with lateral view(s) of the right hip(s). COMPARISON: [facility], , HIP 2V RIGHT, 09/14/2010, 11:41. FINDINGS: Bones: No fractures or dislocations. Pelvic ring appears intact. No suspicious bony lesions. No significant degenerative changes are seen. Soft tissues: The visualized bowel gas pattern is normal. No suspicious soft tissue calcifications. IMPRESSION: No evidence for acute osseous abnormality involving the patient's right hip or pelvis. Dictated by: Lei Weaver M.D. on 02/24/2023 at 16:40 Approved by: Lei Weaver M.D. on 02/24/2023 at 16:42
--- NOTE | 2023-02-24 15:58 | DI.RAD.S_ITS ---
PROCEDURE: XR HAND RT MIN 3V INDICATIONS: right hand injury TECHNIQUE: 3 views of the hand(s) acquired. COMPARISON: None. FINDINGS: Bones: There is an age indeterminate but what I suspect is an old fracture involving the distal right radius. Clinical correlation is recommended. There is chondrocalcinosis present suggesting CPPD change in a patient of this age. There is severe osteoarthritic type degenerative change involving the DIP joints, the 2nd and 3rd metacarpophalangeal joint, and the 1st carpometacarpal joint. Soft tissues: Atherosclerotic vascular calcifications are noted. IMPRESSION: 1. Distal right radial fracture age indeterminate but I suspect this is old in nature and I would correlate with the clinical history. 2. 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 3. Chondrocalcinosis suggestive of CPPD change in a patient of this age. Dictated by: Lei Weaver M.D. on 02/24/2023 at 16:42 Approved by: Lei Weaver M.D. on 02/24/2023 at 16:47
== END ==
PROVIDERS: Family Provider Podiatrist; PCP Internal Medicine; Referring Provider Internal Medicine; Visit Provider Internal Medicine
DX: S52.501A Unspecified fracture of the lower end of right radius, initial encounter for closed fracture (principal); M11.231 Other chondrocalcinosis, right wrist; M79.641 Pain in right hand; M25.551 Pain in right hip; X58.XXXA Exposure to other specified factors, initial encounter
CPT/HCPCS: 73130; 73502

== ENCOUNTER → 2023-10-17 09:34 | Outpatient (CLI) | payer MEDICARE, SELFPAY ==
[2019-09-23 12:34] VITALS: BMI 24.3
--- NOTE | 2023-10-17 09:34 | DI.RAD.S_ITS ---
Bone Density Report Name: TOBY HUTCHISON Age: 88 Sex: Female Ethnicity: White Date of : 1935 Indication: osteopenia; monitoring treatment; Referring Provider: HENRRY CHICAS Study: Bone densitometry was performed. Exam Date: October 17, 2023 Accession number: [id number] Bone Density: Region BMD T-score Z-score Classification AP Spine(L1, L3, L4) 1.090 0.3 3.2 Normal Femoral Neck (Left) 0.605 -2.2 0.3 Osteopenia Total Hip (Left) 0.689 -2.1 0.3 Osteopenia Femoral Neck (Right) 0.663 -1.7 0.8 Osteopenia Total Hip (Right) 0.689 -2.1 0.3 Osteopenia Total Hip Mean 0.689 -2.1 0.3 Osteopenia World Health Organization criteria for BMD impression classify patients as: Normal (T-score at or above -1.0), Osteopenia (T-score between -1.0 and -2.5), or Osteoporosis (T-score at or below -2.5). 10-year Fracture Risk: FRAX not reported because: Treated for osteoporosis Previous Exams: -- Region Exam Age BMD T-score BMD Change BMD Change Date g/cm2 vs Baseline vs Previous -- AP Spine (L1,L3-L4) 10/17/2023 88 1.090 0.3 0.112 (11.4%)# -0.007 (-0.6%)# 06/12/2020 85 1.097 0.4 0.119 (12.1%)* 0.119 (12.1%)* 04/23/2014 78 0.978 -0.7 Total Hip(Left) 10/17/2023 88 0.689 -2.1 0.075 (12.3%)# 0.027 (4.0%)# 06/12/2020 85 0.662 -2.3 0.049 (7.9%)* 0.021 (3.3%) 05/16/2017 82 0.641 -2.5 0.027 (4.4%) 0.027 (4.4%) 04/23/2014 78 0.614 -2.7 Total Hip(Right) 10/17/2023 88 0.689 -2.1 0.010 (1.5%)# -0.016 (-2.3%)# 06/12/2020 85 0.705 -1.9 0.027 (4.0%) -0.005 (-0.7%) 05/16/2017 82 0.711 -1.9 0.032 (4.7%)* 0.032 (4.7%)* 04/23/2014 78 0.679 -2.2 -- *Denotes significance at 95% confidence level, LSC for AP Spine = 0.022 g/cm2, LSC for Total Hip = 0.027 g/cm2 Rate of change results reflect vertebral levels common to all scans # Denotes dissimilar scan types or analysis methods Impression: The patient has low bone mass, based on the Left Femoral Neck T-score. No significant bone loss was observed. Discussion: PATIENT UNDER TREATMENT WITH NO SIGNIFICANT BMD LOSS SINCE LAST EXAM. In an untreated patient, BMD typically declines with age. A lack of decline or gain is usually a sign that treatment is efficacious and fracture risk is reduced. It is important to ask patients whether they are taking their medications and to encourage continued and appropriate compliance with their osteoporosis therapies to reduce fracture risk. It is also important to review their risk factors and encourage appropriate calcium and vitamin D intakes, exercise, fall prevention and other lifestyle measures. Follow-Up: Consider a repeat BMD and Vertebral Fracture Assessment (VFA) exam in 2 years or sooner if medically necessary, to reassess this patient's status. Reported by: WEI BE M.D. on 10/17/2023 10:13:00 AM.
== END ==
PROVIDERS: Family Provider Podiatrist; PCP Internal Medicine; Referring Provider Internal Medicine; Visit Provider Internal Medicine
DX: M81.0 Age-related osteoporosis without current pathological fracture (principal); Z79.83 Long term (current) use of bisphosphonates; Z78.0 Asymptomatic menopausal state; Z90.710 Acquired absence of both cervix and uterus
CPT/HCPCS: 77080

== ENCOUNTER → 2023-10-25 10:57 | Outpatient (CLI) | payer MEDICARE, SELFPAY ==
[2019-09-23 12:34] VITALS: BMI 24.3
[2023-10-25 12:02] LABS: Aspartate Aminotransferase 38 IU/L (14-36); BUN Creatinine Ratio 28.3 (6-22); Blood Urea Nitrogen 17 mg/dL (7-17); Calcium 9.8 mg/dL (8.4-10.2); Carbon Dioxide 25 mmol/L (22-32); Chloride 107 mmol/L (98-107); Cholesterol 143 mg/dL (140-199); Estimated Glomerular Filt Rate > 60 mL/min (>60); Glucose 93 mg/dL (80-110); HDL Cholesterol 79 mg/dL (40-60); HEMOLYSIS < 15 (0-50); LDL Cholesterol Calculated 50 mg/dL (<100); Potassium 4.1 mmol/L (3.4-5.1); Sodium 139 mmol/L (137-145); Triglycerides 72 mg/dL (35-150)
== END ==
PROVIDERS: Family Provider Podiatrist; PCP Internal Medicine; Referring Provider Internal Medicine; Visit Provider Internal Medicine
DX: E78.2 Mixed hyperlipidemia (principal); I10 Essential (primary) hypertension; I67.9 Cerebrovascular disease, unspecified
CPT/HCPCS: 36415; 80048; 80061; 84450

== ENCOUNTER → 2024-07-05 10:29 | Outpatient (CLI) | payer MEDICARE, SELFPAY ==
[2019-09-23 12:34] VITALS: BMI 24.3
--- NOTE | 2024-07-05 10:31 | DI.RAD.S_ITS ---
PROCEDURE: XR HIP W PEL IF DONE RT 2V INDICATIONS: pain following fall TECHNIQUE: AP pelvis with lateral view(s) of the right hip(s). COMPARISON: [facility], , XR HIP W PEL IF DONE RT 2V, 02/24/2023, 16:01. FINDINGS: Bones: No fractures or dislocations. Pelvic ring appears intact. No suspicious bony lesions. Soft tissues: The visualized bowel gas pattern is normal. No suspicious soft tissue calcifications. IMPRESSION: No acute bony abnormality. Dictated by: Russ Moncada M.D. on 07/05/2024 at 13:44 Approved by: Russ Moncada M.D. on 07/05/2024 at 13:45
--- NOTE | 2024-07-05 10:31 | DI.RAD.S_ITS ---
PROCEDURE: XR ANKLE LT 2V INDICATIONS: pain following fall TECHNIQUE: 3 views of the ankle were acquired. COMPARISON: [facility], CR, XR ANKLE 3 VIEWS WEIGHT BEARING LEFT, 10/25/2022, 9:17. FINDINGS: Bones: No acute or subacute fractures or dislocations. Extensive prior operative intervention at the left ankle, but stable since at least 10/25/22 comparison plain films. Fusion at the tibiotalar joint and syndesmosis by fusion at the distal tibia and fibula is present, with a presumed intended defect through the distal diaphysis of the fibula chronically present. Ankle mortise is normally aligned. No suspicious bony lesions. Soft tissues: No tibiotalar joint effusion. Achilles tendon appears normal. IMPRESSION: No acute disease. Prior extensive fusion procedure at the tibial talar joint and the distal tibia and fibula. Presumed intended osseous transsection through the distal fibular diaphysis just above the fusion site at the ankle level. Dictated by: Russ Moncada M.D. on 07/05/2024 at 13:42 Approved by: Russ Moncada M.D. on 07/05/2024 at 13:44
== END ==
PROVIDERS: Family Provider Podiatrist; PCP Internal Medicine; Referring Provider Internal Medicine; Visit Provider Internal Medicine
DX: M25.572 Pain in left ankle and joints of left foot (principal); M25.551 Pain in right hip
CPT/HCPCS: 73502; 73610

== ENCOUNTER → 2024-07-08 14:49 | Outpatient (CLI) | payer MEDICARE, SELFPAY ==
[2019-09-23 12:34] VITALS: BMI 24.3
--- NOTE | 2024-07-08 14:50 | DI.RAD.S_ITS ---
PROCEDURE: XR TIBIA FIBULA LT 2V INDICATIONS: left bateman pain,trauma TECHNIQUE: 3 views of the tibia and fibula were acquired. COMPARISON: Left ankle radiographs on 07/05/2024. FINDINGS: Bones: Similar defect through the distal diaphysis of the fibula. No acute fracture or dislocation. No suspicious bony lesions. Redemonstration of fixation screws at the ankle. Total knee arthroplasty. The bones appear demineralized. Osteoarthritic changes of the hindfoot. Soft tissues: No suspicious soft tissue calcifications or masses. IMPRESSION: 1. No acute fracture or dislocation. 2. Redemonstration of fixation screws at the ankle and defect through the distal diaphysis of the fibula. Dictated by: Albert Bowles M.D. on 07/09/2024 at 11:22 Approved by: Albert Bowles M.D. on 07/09/2024 at 11:28
== END ==
LOC: RAD 14:50
PROVIDERS: Family Provider Podiatrist; PCP Internal Medicine; Referring Provider Internal Medicine; Visit Provider Internal Medicine
DX: S80.12XA Contusion of left lower leg, initial encounter (principal); X58.XXXA Exposure to other specified factors, initial encounter
CPT/HCPCS: 73590

== ENCOUNTER → 2024-09-05 15:05 | Outpatient (CLI) | payer MEDICARE, SELFPAY ==
[2019-09-23 12:34] VITALS: BMI 24.3
[2024-09-05 17:26] LABS: Aspartate Aminotransferase 40 IU/L (14-36); BUN Creatinine Ratio 35.9 (6-22); Blood Urea Nitrogen 23 mg/dL (7-17); Calcium 9.7 mg/dL (8.4-10.2); Carbon Dioxide 28 mmol/L (22-32); Chloride 104 mmol/L (98-107); Cholesterol 138 mg/dL (140-199); Estimated Glomerular Filt Rate > 60 mL/min (>60); Glucose 128 mg/dL (80-110); HDL Cholesterol 73 mg/dL (40-60); HEMOLYSIS < 15 (0-50); LDL Cholesterol Calculated 53 mg/dL (<100); Potassium 4.1 mmol/L (3.4-5.1); Sodium 139 mmol/L (137-145); Triglycerides 62 mg/dL (35-150)
[2024-09-05 17:31] LABS: Appearance Urine UA CLEAR; Bilirubin Urine UA NEGATIVE (NEGATIVE); Color Urine UA YELLOW; Glucose Urine UA NEGATIVE (Negative); Ketones Urine UA NEGATIVE (NEGATIVE); Leukocyte Esterase Urine UA TRACE (NEGATIVE); Nitrite Urine UA NEGATIVE (Negative); Occult Blood Urine UA TRACE-INTACT (Negative); Protein Urine UA NEGATIVE (Negative); Specific Gravity Urine UA 1.015 (1.000-1.035)
[2024-09-05 17:55] LABS: pH Urine UA 5.5 (4.5-8.0)
[2024-09-05 17:57] LABS: Bacteria Urine None Seen; RBC Urine None Seen (0-5/HPF); Urine Volume 10mL (spun); WBC Urine 0-1/HPF (0-5/HPF)
[2024-09-05 17:58] LABS: Culture Indicated Urine Cult Not Indicated; Squamous Epithelial Cell Urine 0-1 /HPF (0-5/HPF)
== END ==
PROVIDERS: Family Provider Podiatrist; PCP Internal Medicine; Referring Provider Internal Medicine; Visit Provider Internal Medicine
DX: E78.2 Mixed hyperlipidemia (principal); I10 Essential (primary) hypertension; R32 Unspecified urinary incontinence
CPT/HCPCS: 80048; 80061; 81001; 84450

== ENCOUNTER → 2025-09-11 11:34 | Outpatient (CLI) | payer MEDICARE, SELFPAY ==
[2019-09-23 12:34] VITALS: BMI 24.3
[2025-09-11 12:38] LABS: Hematocrit 38.1 % (36-46); Hemoglobin 12.8 g/dL (12.0-16.0); Mean Corpuscular HGB Conc 33.5 % (30-36); Mean Corpuscular Hemoglobin 31.1 PG (26-34); Mean Corpuscular Volume 92.9 fL (80-100); Platelet Count 242 X10^3/uL (150-400)
[2025-09-11 13:02] LABS: Alanine Aminotransferase 24 IU/L (<35); Albumin 4.5 g/dL (3.5-5.0); Albumin Globulin Ratio 1.7 (1.0-2.8); Alkaline Phosphatase 58 U/L (38-126); Blood Urea Nitrogen 26 mg/dL (7-17); Calcium 9.9 mg/dL (8.4-10.2); Carbon Dioxide 28 mmol/L (22-32); Chloride 104 mmol/L (98-107); Cholesterol 131 mg/dL (140-199); Estimated Glomerular Filt Rate > 60 mL/min (>60); Globulin 2.6 g/dL (1.7-4.1); Glucose 93 mg/dL (70-99); HDL Cholesterol 85 mg/dL (40-60); HEMOLYSIS < 15 (0-50); Potassium 4.2 mmol/L (3.4-5.1); Sodium 139 mmol/L (137-145); Total Protein 7.1 g/dL (6.3-8.2); Triglycerides 59 mg/dL (35-150)
[2025-09-11 13:32] LABS: TSH w/ Reflex to FT4 1.65 uIU/mL (0.47-4.68)
[2025-09-11 15:34] LABS: Appearance Urine UA CLEAR; Bilirubin Urine UA NEGATIVE (NEGATIVE); Color Urine UA YELLOW; Glucose Urine UA NEGATIVE (Negative); Ketones Urine UA TRACE (NEGATIVE); Leukocyte Esterase Urine UA NEGATIVE (NEGATIVE); Nitrite Urine UA NEGATIVE (Negative); Occult Blood Urine UA NEGATIVE (Negative); Protein Urine UA NEGATIVE (Negative); Specific Gravity Urine UA 1.015 (1.000-1.035); Urobilinogen Urine UA 1.0 E.U./dL (0.2)
[2025-09-11 15:55] LABS: pH Urine UA 6.5 (4.5-8.0)
[2025-09-11 16:10] LABS: Culture Indicated Urine Cult Not Indicated
== END ==
PROVIDERS: Family Provider Podiatrist; PCP Internal Medicine; Referring Provider Internal Medicine; Visit Provider Internal Medicine
DX: N30.00 Acute cystitis without hematuria (principal); E78.2 Mixed hyperlipidemia; I67.9 Cerebrovascular disease, unspecified
CPT/HCPCS: 36415; 80053; 80061; 81001; 84443; 85027